=== PATIENT | female | born 1980 ===

== ENCOUNTER 2025-07-19 08:00 | Day surgery (SDC) | payer OTHER ==
[2025-06-21 08:12] LABS: BASO % 0.7 % (0.1-1.2); EOS # 0.19 (0.04-0.54); EOS % 4.3 % (0.7-7.0); LYMPH # 1.18 (1.18-3.74); LYMPH % 27.0 % (19.3-53.1); MEAN PLATELET VOLUME 11.40 fl (9.4-12.4); MONO # 0.58 (0.24-0.82); NEUT # 2.38 (1.56-6.13); NEUT % 54.5 % (34.0-71.1); RED CELL DISTRIBUTION WIDTH 12.9 % (11.6-14.4)
[2025-06-21 08:15] VITALS: BP 106/71
[2025-06-21 08:23] LABS: URINE APPEARANCE Clear; URINE BILIRRUBIN Negative (NEGATIVE); URINE BLOOD Negative; URINE COLOR Yellow; URINE GLUCOSE Negative (NEGATIVE); URINE KETONE Negative (NEGATIVE); URINE LEUKOCYTE Large; URINE NITRATE Negative; URINE PROTEIN Negative (NEGATIVE); URINE UROBILINOGEN 1.0 E.U./dl
[2025-06-21 08:26] LABS: MONO % 13.3 % (4.7-12.5)
[2025-06-21 08:27] LABS: URINE BACTERIA 4281.2 uL (0.0-1933); URINE EPITHELIAL CELLS 75.0 uL (0.0-38.8); URINE RBC 7.6 uL (0.0-20.8); URINE WBC 328.4 uL (0.0-23.2)
[2025-06-21 08:31] LABS: INR 1.01
[2025-06-21 09:01] LABS: URINE CAST 0.87 uL (0.0-1.40)
[2025-06-21 09:08] LABS: ALT/SGPT 18.0 U/L (12-78); AST/SGOT 10.0 U/L (15-37); BILIRUBIN TOTAL 1.25 mg/dL (0.3-1.2); BUN CREA RATIO 23.0 (7.0-25.0); CREATININE SERUM 0.66 mg/dL (0.55-1.02); GFR 96.41; GLOBULINA 2.9 G/DL (2.4-3.5); GLUCOSE FASTING 83.0 mg/dL (65-100); OSMOLALITY SERUM 281.0 MOSM/KG (275-295); TSH 0.703 uIU/mL (0.358-3.74)
[~2025-07-19] VITALS: Ht 162.6 cm; Wt 68.0 kg
[~2025-07-19 08:00] MED LIST: ANTIVERT25 M2 PO; SYNTHROID150 MCG PO
[2025-07-19] MEDS ORDERED: CEFOXITIN SODIUM 2,000 MG VIAL IV ONE ×2 (08:39→10:30)
[2025-07-19] MEDS ORDERED: CHLORHEXIDINE GLUCONATE 120 ML BOTTLE TOP ONE (09:40)
[2025-07-19] MEDS ORDERED: POVIDONE-IODINE 118 ML BOTT TOP ONE ×2 (09:40→10:30)
[2025-07-19] MEDS ORDERED: PROMETHAZINE HCL 50 MG/ML AMPUL IM ONE (15:00)
[2025-07-19] MEDS ORDERED: MORPHINE SULFATE 4 MG/ML VIAL IV PRN (15:00)
[2025-07-19] MEDS ORDERED: DOXYCYCLINE HY100 MG PO (15:05)
[2025-07-19] MEDS ORDERED: TRAMADOL HCL E100 MG PO (15:05)
[2025-07-19] MEDS ORDERED: NAPR500T14 PO (15:21)
== END 2025-07-19 16:05 | disposition home or self-care (01) ==
LOC: CIR.AMB 08:00
PROVIDERS: ATTEND Obstetrics & Gynecology
DX: D25.0 Submucous leiomyoma of uterus (principal); N84.0 Polyp of corpus uteri; N92.0 Excessive and frequent menstruation with regular cycle